=== PATIENT | female | born 1935 | race Caucasian/White ===

== ENCOUNTER 2017-09-19 08:23 | Emergency (ER) | payer MEDICARE, OTHER ==
[2017-09-19] MEDS ORDERED: ONDANSETRON PF 4 MG/2 ML VIAL. IV ONE (08:45)
[2017-09-19] MEDS ORDERED: 0.9 % SODIUM CHLORIDE 10 ML DISP.SYRIN. IV PRN (08:45)
[2017-09-19] MEDS ORDERED: IV NORMAL SALINE 500ML 500 ML IV ONE (08:45)
[2017-09-19 09:08] LABS: BASO # 0.1 x10^3/uL (0.0-0.2); BASO % 1 % (0-3); EOS # 0.3 x10^3/uL (0.0-0.7); EOS % 3 % (0-3); HEMATOCRIT 42.4 % (36.0-47.0); HEMOGLOBIN 14.3 g/dL (12.0-15.5); LYMPH # 2.2 x10^3/uL (1.0-4.8); LYMPH % 22 % (24-48); MEAN CORPUSCULAR HEMOGLOBIN 28 pg (25-35); MEAN CORPUSCULAR HGB CONC 34 g/dL (31-37); MEAN CORPUSCULAR VOLUME 84 fL (79-100); MONO % 10 % (0-9); NEUT # 6.4 x10^3uL (1.8-7.7); NEUT % 64 % (31-73); PLATELET COUNT 278 x10^3/uL (140-400); RED BLOOD COUNT 5.07 x10^6/uL (3.50-5.40); WHITE BLOOD COUNT 10.1 x10^3/uL (4.0-11.0)
[2017-09-19 09:17] LABS: BILIRUBIN,URINE NEG (NEG); CLARITY,URINE CLEAR; COLOR,URINE STRAW; GLUCOSE,URINE NEG (NEG)
[2017-09-19 09:18] LABS: BACTERIA,URINE 0 /HPF (0-FEW); NITRITE,URINE NEG (NEG); RBC,URINE OCC /HPF (0-2); SQUAMOUS EPITHELIAL CELL,UR OCC /LPF; UROBILINOGEN,URINE 0.2 mg/dL (0.2 mg/dL); WBC,URINE OCC /HPF (0-4)
--- NOTE | 2017-09-19 09:22 | RAD ---
Indication: Right flank pain for one day. Technique: CT abdomen pelvis without IV contrast with multiplanar reformats. Comparison: None Findings: Limited study due to lack of IV contrast. Heart is normal in size. No pericardial or pleural effusion. Clear lung bases. Liver is normal in morphology spleen is not enlarged. No radiopaque gallstones. No pericholecystic fluid or gallbladder wall thickening. Noncontrast appearance of the pancreas is within normal limits. Adrenal glands show no nodularity. No nephrolithiasis or hydronephrosis. No retroperitoneal or pelvic adenopathy. Small omental fat-containing umbilical hernia noted. No bowel obstruction. Sigmoid diverticulosis. Appendix is not identified. No right lower quadrant inflammatory changes. No radiopaque stones in the bladder. Uterus surgically absent. Mild diffuse atherosclerotic disease of the abdominal aorta noted. No suspicious bony lesion. Degenerative disc disease seen in the upper lumbar spine with associated facet arthropathy. Impression: Limited study due to lack of IV contrast. 1. No nephrolithiasis or imaging evidence of obstructive uropathy. 2. Appendix not visualized. No right lower quadrant inflammatory changes. Sigmoid diverticulosis without diverticulitis. PQRS Compliance Statement: One or more of the following individualized dose reduction techniques were utilized for this examination: 1. Automated exposure control 2. Adjustment of the mA and/or kV according to patient size 3. Use of iterative reconstruction technique
[2017-09-19 09:24] LABS: ALBUMIN/GLOBULIN RATIO 1.1 (1.0-1.7); CALCIUM 9.8 mg/dL (8.5-10.1); CREATININE 1.2 mg/dL (0.6-1.0); GFR 43.2; POTASSIUM 4.3 mmol/L (3.5-5.1); TOTAL BILIRUBIN 0.4 mg/dL (0.2-1.0); TOTAL PROTEIN 7.8 g/dL (6.4-8.2)
[2017-09-19] MEDS ORDERED: HYDR-971 PO (09:36)
[2017-09-19] MEDS ORDERED: CYCL5TAB PO (09:36)
[2017-09-19] MEDS ORDERED: ONDANSETRON PF 4 MG/2 ML VIAL. ONE (09:36)
--- NOTE | 2017-09-19 09:36 | PHYS DOC ---
Past History Past Medical History: Diabetes Smoking: Non-smoker Adult General Chief Complaint Chief Complaint: Flank pain HPI HPI 82-year-old female patient complaining of gradual onset of right flank pain since yesterday as a constant pain that gradually getting worse. Patient complaining of increasing of pain with movement and sitting up. Patient rated her pain 10 over 10 and denies radiation of pain, vomiting, diarrhea and constipation, urinary symptoms, fever and chills, chest pain. She complaining of mild nausea with her pain. Patient states she had the same pain couple years ago with diagnosis of shingles. [ Review of Systems Review of Systems Constitutional: Denies fever or chills [] Eyes: Denies change in visual acuity, redness, or eye pain [] HENT: Denies nasal congestion or sore throat [] Respiratory: Denies cough or shortness of breath [] Cardiovascular: No additional information not addressed in HPI [] GI: Denies abdominal pain, nausea, vomiting, bloody stools or diarrhea [] : Denies dysuria or hematuria ,reports flank pain[] Musculoskeletal: Denies joint pain , reports flank pain[] Integument: Denies rash or skin lesions [] Neurologic: Denies headache, focal weakness or sensory changes [] Endocrine: Denies polyuria or polydipsia [] All other systems were reviewed and found to be within normal limits, except as documented in this note. Current Medications Current Medications Current Medications Medications (Trade) Dose Ordered Sig/Vamsi Start Time Stop Time Status Last Admin Dose Admin Fentanyl Citrate (Fentanyl 2ml Vial) 50 mcg 1X ONCE 09/19/17 08:45 09/19/17 08:46 UNV Ondansetron HCl (Zofran) 4 mg 1X ONCE 09/19/17 08:45 09/19/17 08:46 UNV Sodium Chloride 500 ml @ 0 mls/hr 1X ONCE 09/19/17 08:45 09/19/17 08:46 UNV Sodium Chloride (Normal Saline Flush) 10 ml QSHIFT PRN 09/19/17 08:45 UNV Physical Exam Physical Exam Constitutional: Well developed, well nourished, moderate distress, non-toxic appearance. [] HENT: Normocephalic, atraumatic, bilateral external ears normal, oropharynx moist, no oral exudates, nose normal. [] Eyes: PERRLA, EOMI, conjunctiva normal, no discharge. [] Neck: Normal range of motion, no tenderness, supple, no stridor. [] Cardiovascular:Heart rate regular rhythm, no murmur [] Lungs & Thorax: Bilateral breath sounds clear to auscultation [] Abdomen: Bowel sounds normal, soft, no tenderness, no masses, no pulsatile masses. [] Skin: Warm, dry, no erythema, no rash. [] Back: No tenderness, right CVA tenderness. [] Extremities: No tenderness, no cyanosis, no clubbing, ROM intact, no edema. [] Neurologic: Alert and oriented X 3, normal motor function, normal sensory function, no focal deficits noted. [] Psychologic: Affect normal, judgement normal, mood normal. [] EKG EKG [] Radiology/Procedures Radiology/Procedures [] [address] [place] [id number] IMAGING REPORT Signed PATIENT: AMINAH CALLES ACCOUNT: [id number] : 1935 LOCATION: ER AGE: 82 SEX: F EXAM STATUS: REG ER ORD. PHYSICIAN: KARIN BAUMANN MD REASON: right flank pain PROCEDURE: CT ABDOMEN PELVIS WO CONTRAST Indication: Right flank pain for one day. Technique: CT abdomen pelvis without IV contrast with multiplanar reformats. Comparison: None Findings: Limited study due to lack of IV contrast. Heart is normal in size. No pericardial or pleural effusion. Clear lung bases. Liver is normal in morphology spleen is not enlarged. No radiopaque gallstones. No pericholecystic fluid or gallbladder wall thickening. Noncontrast appearance of the pancreas is within normal limits. Adrenal glands show no nodularity. No nephrolithiasis or hydronephrosis. No retroperitoneal or pelvic adenopathy. Small omental fat-containing umbilical hernia noted. No bowel obstruction. Sigmoid diverticulosis. Appendix is not identified. No right lower quadrant inflammatory changes. No radiopaque stones in the bladder. Uterus surgically absent. Mild diffuse atherosclerotic disease of the abdominal aorta noted. No suspicious bony lesion. Degenerative disc disease seen in the upper lumbar spine with associated facet arthropathy. Impression: Limited study due to lack of IV contrast. 1. No nephrolithiasis or imaging evidence of obstructive uropathy. 2. Appendix not visualized. No right lower quadrant inflammatory changes. Sigmoid diverticulosis without diverticulitis. PQRS Compliance Statement: One or more of the following individualized dose reduction techniques were utilized for this examination: 1. Automated exposure control 2. Adjustment of the mA and/or kV according to patient size 3. Use of iterative reconstruction technique DICTATED AND SIGNED BY: ISRAEL BISHOP DO DATE: 09/19/17913 CC: KARIN BAUMANN MD; RAFAEL JOHNSON ~ Course & Med Decision Making Course & Med Decision Making Pertinent Labs and Imaging studies reviewed. (See chart for details) Evaluation of patient in ER showed 82-year-old female patient with complaining of right flank pain since yesterday. Patient states she had the same pain couple years ago with diagnosis of shingles. Patient did not have rash. Labs and CT of abdomen and pelvis was unremarkable except for mild elevation of BUN/ creatinine related to taking diuretic. Patient did not want narcotic pain medication in ER because she drove by herself. Plan discharge patient home with diagnosis of musculoskeletal pain. Dragon Disclaimer Dragon Disclaimer This electronic medical record was generated, in whole or in part, using a voice recognition dictation system. Departure Departure: Impression: Primary Impression: Lumbosacral strain Disposition: 01 HOME, SELF-CARE (At 0945) Condition: STABLE Referrals: RAFAEL JOHNSON (PCP) Patient Instructions: Lumbosacral Strain Additional Instructions: Apply ice on the affected area Follow-up with your primary care physician in 3-5 days Return to ER if not getting better Scripts Cyclobenzaprine Hcl (CYCLOBENZAPRINE HCL) 5 Mg Tablet 1 TAB PO TID, #21 TAB Prov: KARIN BAUMANN MD 09/19/17 Hydrocodone Bit/Acetaminophen (NORCO 5-325 TABLET) 1 Each Tablet 1 TAB PO PRN Q6HRS Y for PAIN, #14 TAB 0 Refills Prov: KARIN BAUMANN MD 09/19/17 KARIN BAUMANN MD Sep 19, 2017 09:36
[2017-09-19 09:45] VITALS: BP 143/52
== END 2017-09-19 09:47 | disposition home or self-care (01) ==
LOC: ER 08:23
DX: S39.012A Strain of muscle, fascia and tendon of lower back, initial encounter (principal); E11.9 Type 2 diabetes mellitus without complications; X58.XXXA Exposure to other specified factors, initial encounter; Y93.89 Activity, other specified; Y99.8 Other external cause status; Y92.89 Other specified places as the place of occurrence of the external cause
CPT/HCPCS: 36415; 74176; 80053; 81001; 82550; 83690; 83880; 84484; 85025; 96361; 96374; 99285; J2405; J7040

== ENCOUNTER → 2021-10-20 | Outpatient (CLI) | payer MEDICARE, OTHER ==
[~2021-10-20] MED LIST: CYCL5TAB PO; HYDR-3165 PO
--- NOTE | 2021-10-20 13:24 | RAD ---
Study: XR CHEST 2V Indication: Radiation pneumonitis. Comparison: None. Findings: Right chest wall Port-A-Cath with the tip terminating within the SVC. Incompletely evaluated lower ce rvical ACDF construct. The cardiomediastinal silhouette is within normal limits for size. Mild bilateral hilar prominence an d streaky densities emanating away from the jazmin on the PA view and towards the retrosternal clear sp emilio on the lateral view. Mild asymmetric elevation of the right hemidiaphragm which is slightly tente d. Linear densities at the left costophrenic angle typical of atelectasis and/or scarring. No lobar c onsolidation, pleural effusion or pneumothorax. Aortic calcific atherosclerosis. Osteopenia. Incompletely evaluated degenerative changes of the spine and right shoulder. Impression: Mild hilar fullness and streaky densities emanating way from the jazmin. The findings are nonspecific b ut could be in part related to radiation pneumonitis given the indication for the exam. A manifestati on of a volume overload state is also in the differential but there is no pleural effusion. Additiona l chronic observations discussed in the body of the report. Electronically signed by: RYAN MYERS MD (10/20/2021 1:22 PM) [id number]
== END ==
LOC: LAB 11:15
PROVIDERS: ATTEND Nurse Practitioner
DX: C34.91 Malignant neoplasm of unspecified part of right bronchus or lung (principal); I70.0 Atherosclerosis of aorta; M85.88 Other specified disorders of bone density and structure, other site; M47.814 Spondylosis without myelopathy or radiculopathy, thoracic region; M19.011 Primary osteoarthritis, right shoulder
CPT/HCPCS: 71046

== ENCOUNTER 2021-11-14 11:12 | Emergency (ER) | payer MEDICARE, OTHER ==
[~2021-11-14] VITALS: Ht 160 cm; Wt 70.2 kg
[2021-11-14] MEDS ORDERED: methylPREDNISolone SOD SUCC PF 125 MG/2 ML VIAL. IV ONE (11:30)
[2021-11-14] MEDS ORDERED: IOHEXOL 350 MG/ML 100 ML VIAL. IV ONE (11:45)
[2021-11-14 12:03] LABS: BASO # 0.1 x10^3/uL (0.0-0.2); BASO % 1 % (0-3); EOS # 0.6 x10^3/uL (0.0-0.7); EOS % 5 % (0-3); HEMATOCRIT 34.6 % (36.0-47.0); HEMOGLOBIN 11.2 g/dL (12.0-15.5); LYMPH # 1.1 x10^3/uL (1.0-4.8); LYMPH % 11 % (24-48); MEAN CORPUSCULAR HEMOGLOBIN 26 pg (25-35); MEAN CORPUSCULAR HGB CONC 32 g/dL (31-37); MEAN CORPUSCULAR VOLUME 81 fL (79-100); MONO # 1.2 x10^3/uL (0.0-1.1); MONO % 11 % (0-9); NEUT # 7.6 x10^3uL (1.8-7.7); NEUT % 72 % (31-73); PLATELET COUNT 317 x10^3/uL (140-400); RED BLOOD COUNT 4.25 x10^6/uL (3.50-5.40); RED CELL DISTRIBUTION WIDTH 16.4 % (11.5-14.5); WHITE BLOOD COUNT 10.6 x10^3/uL (4.0-11.0)
[2021-11-14 12:13] LABS: CALCIUM 9.5 mg/dL (8.5-10.1); CREATININE 1.2 mg/dL (0.6-1.0); GFR 42.8; POTASSIUM 4.3 mmol/L (3.5-5.1)
[2021-11-14 12:26] LABS: ALBUMIN 2.8 g/dL (3.4-5.0); ALBUMIN/GLOBULIN RATIO 0.8 (1.0-1.7); TOTAL BILIRUBIN 0.4 mg/dL (0.2-1.0); TOTAL PROTEIN 6.4 g/dL (6.4-8.2)
--- NOTE | 2021-11-14 13:36 | RAD ---
Study: CT CHEST WITH CONTRAST - PULMONARY ANGIOGRAM History: PE, shortness of air, pain Comparison: None Technique: Helical CT of the chest performed after the administration of 75 mL Omnipaque 350 intrave nous contrast and timed for angiographic evaluation of the pulmonary arteries per PE protocol. Polk l and sagittal 3D MIP reformations were obtained. One or more of the following individualized dose reduction techniques were utilized for this examinat ion: 1. Automated exposure control 2. Adjustment of the mA and/or kV according to patient size 3. Use of iterative reconstruction technique. Findings: Pulmonary Arteries: Contrast bolus is adequate. There is no acute pulmonary embolism. Heart/Systemic Vasculature: Heart is normal in size. There are coronary artery calcifications. The th oracic aorta is normal in caliber. Mediastinum: There is ill-defined soft tissue at the right hilum encasing the central vascular struct ures. Mild diffuse esophageal wall thickening, likely reflecting esophagitis. Lungs: There are surgical changes of right upper lobectomy. There is a 1.8 x 1.6 x 1.1 cm suprahilar nodular opacity in right middle lobe abutting the fissure (image 38 series 4 and image 50 series 5). There are additional patchy consolidative opacities in the right lower lobe, lingula, and to lesser e xtent in the right middle lobe. No pleural effusion or pneumothorax. Neck/Axilla/Body Wall: No axillary lymphadenopathy. Visualized portion of thyroid gland is unremarkab le. There is a right chest wall port with tip at the superior cavoatrial junction. Upper Abdomen: Unremarkable. Bones: There is an age-indeterminate compression fracture of T5 with 25 percent height loss and no re tropulsion of cortex. Moderate degenerative disc disease. Miscellaneous: None. IMPRESSION: 1. No acute pulmonary embolism. 2. Surgical changes of right upper lobectomy. 3. Ill-defined soft tissue the right hilum encasing central bronchovascular structures. 4. Patchy bilateral consolidative opacities, predominantly in the right lower lobe, lingula, and to lesser extent in the right middle lobe. Findings may reflect pneumonia or pneumonitis. 5. There is also a slightly more discrete nodular opacity in the right suprahilar region which may a lso be infectious or inflammatory, although malignancy is not excluded. Recommend correlation with ou tside prior CTs. 6. Age-indeterminate T5 compression fracture with 25 percent height loss, no retropulsion. Electronically signed by: Araceli Hansen MD (11/14/2021 1:34 PM) [id number]
--- NOTE | 2021-11-14 14:00 | PHYS DOC ---
Past History Past Medical History: Diabetes Additional Past Medical Histor: cancer Lung (CESAR RUCKER APRN) Past Surgical History: Other (CESAR RUCKER APRN) Smoking: Non-smoker Alcohol Use: None Drug Use: None (CESAR RUCKER APRN) General Adult EDM: Chief Complaint: SHORTNESS OF BREATH HPI: HPI: Patient is a 86-year-old female who presents to the emergency department via EMS for a nonproductive cough and shortness of breath that started yesterday. Patient is also reporting left-sided rib pain when she coughs. She saw her primary care provider who sent her into the emergency department to rule out a pulmonary embolism. Patient does have a history of lung cancer and she receives chemo and radiation and has had a right upper lobectomy. Patient does have a history of pulmonary embolism and is on blood thinner. She denies any home oxygen use. She was not hypoxic but reports comfort with supplemental oxygen therefore she was placed on 2 L via nasal cannula. Patient's oxygen saturation on room air is 95%. She denies any fevers, nausea, vomiting. (CESAR RUCKER APRN) Review of Systems: Review of Systems: Constitutional: See HPI Respiratory: See HPI Cardiovascular: See HPI GI: See HPI (CESAR RUCKER APRN) Current Medications: Current Meds: Current Medications Medications (Trade) Dose Ordered Sig/Vamsi Start Time Stop Time Status Last Admin Dose Admin Iohexol (Omnipaque 350 Mg/ml) 100 ml 1X ONCE 11/14/21 11:45 11/14/21 11:46 DC 11/14/21 12:27 75 ML Methylprednisolone Sodium Succinate (SOLU-Medrol 125MG VIAL) 125 mg 1X ONCE 11/14/21 11:30 11/14/21 11:31 DC 11/14/21 11:30 125 MG (CESAR RUCKER APRN) Allergies: Allergies: Allergies Coded Allergies Type Severity Reaction Last Updated Verified Penicillins Allergy Unknown 09/19/17 Yes Sulfa (Sulfonamide Antibiotics) Allergy Unknown 09/19/17 Yes hydrochlorothiazide Allergy Unknown 09/19/17 Yes triamterene Allergy Unknown 09/19/17 Yes Uncoded Allergies Type Severity Reaction Last Updated Verified cough medications Allergy Unknown 11/14/21 (CESAR RUCKER APRN) Physical Exam: PE: Constitutional: Well developed, well nourished, no acute distress, non-toxic appearance. [] HENT: Normocephalic, atraumatic, bilateral external ears normal, oropharynx moist, no oral exudates, nose normal. [] Eyes: PERRL, EOMI, conjunctiva normal, no discharge. [] Neck: Normal range of motion, no tenderness, supple, no stridor. [] Cardiovascular:Heart rate regular rhythm, no murmur [] Lungs & Thorax: Bilateral breath sounds clear to auscultation [] Abdomen: Bowel sounds normal, soft, no tenderness, no masses, no pulsatile masses. [] Skin: Warm, dry, no erythema, no rash. [] Back: No tenderness Extremities: No tenderness, no cyanosis, no clubbing, ROM intact, no edema. [] Neurologic: Alert and oriented X 3, normal motor function, normal sensory function, no focal deficits noted. [] Psychologic: Affect normal, judgement normal, mood normal. [] (CESAR RUCKER APRN) Current Patient Data: Labs: Laboratory Tests Test 11/14/21 11:45 White Blood Count 10.6 x10^3/uL (4.0-11.0) Red Blood Count 4.25 x10^6/uL (3.50-5.40) Hemoglobin 11.2 g/dL (12.0-15.5) L Hematocrit 34.6 % (36.0-47.0) L Mean Corpuscular Volume 81 fL (79-100) Mean Corpuscular Hemoglobin 26 pg (25-35) Mean Corpuscular Hemoglobin Concent 32 g/dL (31-37) Red Cell Distribution Width 16.4 % (11.5-14.5) H Platelet Count 317 x10^3/uL (140-400) Neutrophils (%) (Auto) 72 % (31-73) Lymphocytes (%) (Auto) 11 % (24-48) L Monocytes (%) (Auto) 11 % (0-9) H Eosinophils (%) (Auto) 5 % (0-3) H Basophils (%) (Auto) 1 % (0-3) Neutrophils # (Auto) 7.6 x10^3uL (1.8-7.7) Lymphocytes # (Auto) 1.1 x10^3/uL (1.0-4.8) Monocytes # (Auto) 1.2 x10^3/uL (0.0-1.1) H Eosinophils # (Auto) 0.6 x10^3/uL (0.0-0.7) Basophils # (Auto) 0.1 x10^3/uL (0.0-0.2) Sodium Level 137 mmol/L (136-145) Potassium Level 4.3 mmol/L (3.5-5.1) Chloride Level 106 mmol/L (98-107) Carbon Dioxide Level 26 mmol/L (21-32) Anion Gap 5 (6-14) L Blood Urea Nitrogen 38 mg/dL (7-20) H Creatinine 1.2 mg/dL (0.6-1.0) H Estimated GFR (Cockcroft-Gault) 42.8 BUN/Creatinine Ratio 32 (6-20) H Glucose Level 125 mg/dL (70-99) H Calcium Level 9.5 mg/dL (8.5-10.1) Total Bilirubin 0.4 mg/dL (0.2-1.0) Aspartate Amino Transferase (AST) 17 U/L (15-37) Alanine Aminotransferase (ALT) 22 U/L (14-59) Alkaline Phosphatase 63 U/L (46-116) Troponin I High Sensitivity 8 ng/L (4-50) KV-Yun-D-Type Natriuretic Peptide 82 pg/mL (0-449) Total Protein 6.4 g/dL (6.4-8.2) Albumin 2.8 g/dL (3.4-5.0) L Albumin/Globulin Ratio 0.8 (1.0-1.7) L Vital Signs: Vital Signs Date Time Temp Pulse Resp B/P (MAP) Pulse Ox O2 Delivery O2 Flow Rate FiO2 11/14/21 12:41 93 18 112/65 (81) 99 Nasal Cannula 2.0 11/14/21 11:18 98.5 (CESAR RUCKER APRN) EKG: EKG: EKG performed by ER staff at 1133 shows sinus rhythm with a rate of 90, QTc is 442, no STEMI read by Dr. Gambino at 1142. [] (CESAR RUCKER APRN) Radiology/Procedures: Radiology/Procedures: []Study: CT CHEST WITH CONTRAST - PULMONARY ANGIOGRAM History: PE, shortness of air, pain Comparison: None Technique: Helical CT of the chest performed after the administration of 75 mL Omnipaque 350 intravenous contrast and timed for angiographic evaluation of the pulmonary arteries per PE protocol. Coronal and sagittal 3D MIP reformations were obtained. One or more of the following individualized dose reduction techniques were utilized for this examination: 1. Automated exposure control 2. Adjustment of the mA and/or kV according to patient size 3. Use of iterative reconstruction technique. Findings: Pulmonary Arteries: Contrast bolus is adequate. There is no acute pulmonary embolism. Heart/Systemic Vasculature: Heart is normal in size. There are coronary artery calcifications. The thoracic aorta is normal in caliber. Mediastinum: There is ill-defined soft tissue at the right hilum encasing the central vascular structures. Mild diffuse esophageal wall thickening, likely reflecting esophagitis. Lungs: There are surgical changes of right upper lobectomy. There is a 1.8 x 1.6 x 1.1 cm suprahilar nodular opacity in right middle lobe abutting the fissure (image 38 series 4 and image 50 series 5). There are additional patchy consolidative opacities in the right lower lobe, lingula, and to lesser extent in the right middle lobe. No pleural effusion or pneumothorax. Neck/Axilla/Body Wall: No axillary lymphadenopathy. Visualized portion of thyroid gland is unremarkable. There is a right chest wall port with tip at the superior cavoatrial junction. Upper Abdomen: Unremarkable. Bones: There is an age-indeterminate compression fracture of T5 with 25 percent height loss and no retropulsion of cortex. Moderate degenerative disc disease. Miscellaneous: None. IMPRESSION: 1. No acute pulmonary embolism. 2. Surgical changes of right upper lobectomy. 3. Ill-defined soft tissue the right hilum encasing central bronchovascular structures. 4. Patchy bilateral consolidative opacities, predominantly in the right lower lobe, lingula, and to lesser extent in the right middle lobe. Findings may reflect pneumonia or pneumonitis. 5. There is also a slightly more discrete nodular opacity in the right suprahilar region which may also be infectious or inflammatory, although malignancy is not excluded. Recommend correlation with outside prior CTs. 6. Age-indeterminate T5 compression fracture with 25 percent height loss, no retropulsion. Electronically signed by: Araceli Hansen MD (11/14/2021 1:34 PM) [id number] DICTATED AND SIGNED BY: ARACELI HANSEN MD DATE: 11/14/21 1320 CC: CESAR RUCKER APRN; RAFAEL JOHNSON ~ (CESAR RUCKER APRN) Heart Score: C/O Chest Pain: No Risk Factors: Risk Factors: DM, Current or recent (<one month) smoker, HTN, HLP, family history of CAD, obesity. Risk Scores: Score 0 - 3: 2.5% MACE over next 6 weeks - Discharge Home Score 4 - 6: 20.3% MACE over next 6 weeks - Admit for Clinical Observation Score 7 - 10: 72.7% MACE over next 6 weeks - Early Invasive Strategies (CESAR RUCKER APRN) Course & Med Decision Making: Course & Med Decision Making Pertinent Labs and Imaging studies reviewed. (See chart for details) [Patient presents to the emergency department for cough and shortness of breath. Patient does have history of lung cancer and has a right upper lobectomy, she also has a history of PEs and is on blood thinner. Blood work obtained in the emergency department including troponin and BNP. Her lab work was mostly unremarkable. Patient had mild elevation in her BUN and creatinine which is consistent with previous lab findings. Patient had a CT angio of her chest to rule out pulmonary embolism and did show pneumonia and no PE. Patient is on supplemental oxygen for comfort at this time and is not hypoxic. She is ti trated off of her supplemental oxygen and her oxygen saturation and her oxygen saturation decreased to 88 to 89%. Patient does not have oxygen at home. I discussed these findings with patient and her need for admission and IV antibiotics. Patient is requesting to be transferred to [facility] as that is where she receives her oncology care. I spoke with [facility] transfer team. Patient will be accepted by Dr. Evelyn stiles and will be notified of bed assignment when it becomes available. IV antibiotics ordered for patient for consideration of herself and penicillin allergy. Patient updated on care plan she is agreeable at this time. (CESAR RUCKER APRN) Dragon Disclaimer: Dragon Disclaimer: This electronic medical record was generated, in whole or in part, using a voice recognition dictation system. (CESAR RUCKER APRN) Attending Co-Sign The patient was seen and interviewed as well as examined at the bedside. The chart was reviewed. The case was discussed. Agree with the plan of care. (BHUPENDRA GAMBINO DO) Departure Departure: Impression: Primary Impression: Pneumonia Qualified Codes: J18.9 - Pneumonia, unspecified organism Disposition: 02 SHORT TERM HOSPITAL Condition: STABLE Referrals: RAFAEL JOHNSON (PCP) CESAR RUCKER TAPE MACHINE TAILER Nov 14, 2021 14:00 BHUPENDRA GAMBINO DO Nov 15, 2021 07:56
[2021-11-14 15:53] VITALS: BP 122/58
--- NOTE | 2021-11-14 18:35 | EKG ---
[address] [address] Test Date: 2021-11-14 Test Time: 11:33:27 Pat Name: AMINAH CALLES Department: Room: Gender: F Community Fundraiser: BRITTANY : 1935 Requested By: CESAR RUCKER Order Number: [id number] Reading MD: Measurements Intervals [place] Rate: 90 P: 34 VA: 158 QRS: 91 QRSD: 128 T: 18 QT: 358 QTc: 442 Interpretive Statements SINUS RHYTHM RIGHTWARD AXIS NON SPECIFIC INTRAVENTRICULAR BLOCK QRS(T) CONTOUR ABNORMALITY CONSIDER ANTEROLATERAL MYOCARDIAL DAMAGE ABNORMAL ECG RI6.01 No previous ECG available for comparison
== END 2021-11-14 18:57 | disposition short-term general hospital (02) ==
LOC: ER 11:12
DX: J18.9 Pneumonia, unspecified organism (principal); E11.9 Type 2 diabetes mellitus without complications; Z86.711 Personal history of pulmonary embolism; Z88.0 Allergy status to penicillin; Z88.2 Allergy status to sulfonamides; Z88.8 Allergy status to other drugs, medicaments and biological substances
CPT/HCPCS: 36415; 71275; 80053; 83880; 84484; 85025; 93005; 96365; 96366; 96375; 99285; J1956; J2930; Q9967